=== PATIENT | female | born 1975 | race Caucasian/White ===

== ENCOUNTER 2018-09-05 20:36 | Emergency (ER) | payer MEDICAID ==
[~2018-09-05] VITALS: Ht 167.6 cm; Wt 110.1 kg
[~2018-09-05 20:36] MED LIST: IBUP-1222 PO; MELO15TA6 PO
[2018-09-05] MEDS ORDERED: ONDANSETRON 2MG/ML, 2ML ONE (21:20)
[2018-09-05] MEDS ORDERED: MORPHINE SULFATE 4 MG/ML, 1ML ONE (21:20)
[2018-09-05 21:27] LABS: BASOPHILS # (AUTO) 0.07 x10^3/uL (0-0.1); BASOPHILS % (AUTO) 1 % (0-1); EOSINOPHILS # (AUTO) 0.27 x10^3/uL (0-0.4); EOSINOPHILS % (AUTO) 3 % (1-7); LYMPHOCYTES # (AUTO) 3.21 x10^3/uL (1-3.4); LYMPHOCYTES % (AUTO) 33 % (22-44); MD NO; MEAN CORPUSCULAR HGB CONC 33.6 g/dL (32.4-35.8); MEAN CORPUSCULAR VOLUME 86.3 fL (80-100); MONOCYTES # (AUTO) 0.72 x10^3/uL (0.2-0.8); MONOCYTES % (AUTO) 7 % (2-9); NEUTROPHILS # (AUTO) 5.55 x10^3/uL (1.8-6.8); NEUTROPHILS % (AUTO) 57 % (42-75); PLATELET COUNT 279 x10^3/uL (130-400); RED BLOOD COUNT 4.42 x10^6/uL (3.82-5.3); RED CELL DISTRIBUTION WIDTH 13.9 % (9.6-15.2)
[2018-09-05] MEDS ORDERED: SODIUM CHLORIDE FLUSH 10ML SYR IVF ONE (21:30)
[2018-09-05] MEDS ORDERED: MORPHINE SULFATE 4 MG/ML, 1ML IVPush PRN (21:30)
[2018-09-05] MEDS ORDERED: ONDANSETRON 2MG/ML, 2ML IVPush ONE (21:30)
[2018-09-05 21:36] LABS: ALANINE AMINOTRANSFERASE 26 U/L (12-78); ALBUMIN 3.3 g/dL (3.4-5.0); ANION GAP 8 mmol/L (5-15); CALCIUM 8.3 mg/dL (8.5-10.1); CHLORIDE 108 mmol/L (98-107); CREATININE 1.06 mg/dL (0.55-1.02)
[2018-09-05 21:38] LABS: ALKALINE PHOSPHATASE 86 U/L (45-117); BILIRUBIN,TOTAL 0.1 mg/dL (0.2-1.0); TOTAL PROTEIN 6.9 g/dL (6.4-8.2)
[2018-09-05 22:35] LABS: MICROSCOPIC AUTO
[2018-09-05 22:38] LABS: CULTURE INDICATED? YES
[2018-09-05 23:13] VITALS: BP 116/70
== END 2018-09-05 23:14 | disposition home or self-care (01) ==
LOC: ED 20:59
DX: R10.32 Left lower quadrant pain (principal); R30.9 Painful micturition, unspecified; Z98.51 Tubal ligation status
CPT/HCPCS: 36415; 76830; 80053; 81001; 84702; 85025; 87077; 87086; 87186; 96374; 96375; 99284; J2405